=== PATIENT | male | born 2000 | race Caucasian/White ===

== ENCOUNTER 2021-08-08 20:06 | Emergency (ER) | payer OTHER ==
[~2021-08-08] VITALS: Ht 299.7 cm; Wt 65.8 kg
[2021-08-08 20:16] VITALS: BP 115/70
--- NOTE | 2021-08-08 20:21 | NUR ---
patient to the bathroom for urine collection
[2021-08-08] MEDS ORDERED: DIPH25TA53 PO (20:36)
[2021-08-08] MEDS ORDERED: PRED20TA5 PO (20:36)
--- NOTE | 2021-08-08 20:58 | NUR ---
seen by curtis no nursing interventions needed to be done for patient
--- NOTE | 2021-08-08 20:58 | NUR ---
Patient discharged with v/s stable. Written and verbal after care instructions given and explained. Patient alert, oriented and verbalized understanding of instructions. Ambulatory with steady gait. All questions addressed prior to discharge. ID band removed. Patient advised to follow up with PMD. Rx of benadryl and deltasone given. Patient educated on indication of medication including possible reaction and side effects. Opportunity to ask questions provided and answered.
[2021-08-08 20:59] VITALS: BP 115/70
== END 2021-08-08 20:58 | disposition home or self-care (01) ==
LOC: MED 20:06
DX: R21 Rash and other nonspecific skin eruption (principal); L29.9 Pruritus, unspecified; Z88.2 Allergy status to sulfonamides
CPT/HCPCS: 99283

== ENCOUNTER 2022-04-07 01:00 | Emergency (ER) | payer OTHER ==
[~2022-04-07] VITALS: Ht 167.6 cm; Wt 67.4 kg
[~2022-04-07 01:00] MED LIST: DIPH25TA53 PO; PRED20TA5 PO
[2022-04-07 01:18] VITALS: BP 123/72
--- NOTE | 2022-04-07 01:20 | NUR ---
PT TO LOBBY
--- NOTE | 2022-04-07 02:13 | NUR ---
CALLED PT FOR BED. NO ANSWER. CALLED PT TO CELL PHONE, NO ANSWER.
--- NOTE | 2022-04-07 02:20 | NUR ---
PATIENT LEFT WITHOUT BEING SEEN BY DR. ROLLINS. NO FURTHER CARE PROVIDED FOR PATIENT.
== END 2022-04-07 02:13 | disposition left against medical advice (07) ==
LOC: MED 01:00
DX: R05.9 Cough, unspecified (principal); R51.9 Headache, unspecified; J02.9 Acute pharyngitis, unspecified; Z53.21 Procedure and treatment not carried out due to patient leaving prior to being seen by health care provider
CPT/HCPCS: 71045; 99281